=== PATIENT | male | born 1960 | race Caucasian/White ===

== ENCOUNTER 2019-10-22 00:01 | Emergency (ER) | payer BC ==
--- NOTE | 2019-10-22 00:53 | EDM.PDOC ---
ED HPI GENERAL MEDICAL PROBLEM - General Chief Complaint: Flank Pain Stated Complaint: KIDNEY STONES? Time Seen by Provider: 10/22/19 00:35 Source of Information: Reports: Patient History Limitations: Reports: No Limitations - History of Present Illness INITIAL COMMENTS - FREE TEXT/NARRATIVE: Patient presents concerned that he may have a kidney stone on his right side. Getting approximately 1800 hrs. this evening he noticed sudden onset of severe right flank and CVA pain with some radiation around to the anterior abdomen. He has never had anything like this before. No pain on the left side. He states that he is currently being treated for some type of colitis or diverticulitis or diverticulosis or a different condition but related to intermittent abdominal pain. He has a prescription for budesonide 3 mg tablets which he states he received for his osos/-itis pain previously described. When the right-sided pain developed tonight, it was 10/10 in severity. He took some Tylenol and ibuprofen prior to arrival and feels much better now. He does not think he has had any specific urinary problems and has not noticed any changes in color or urinary pattern. His father has a history of kidney stones and he is concerned that he now has 1 as well. Onset: Sudden Duration: Hour(s): (7) Location: Reports: Abdomen, Back Quality: Reports: Sharp, Stabbing Severity: Severe Improves with: Reports: None Worsens with: Reports: None Associated Symptoms: Reports: Nausea/Vomiting Right Flank Pain Score (Numeric/FACES): 2 - Related Data Allergies Allergy/AdvReac Type Severity Reaction Status Date / Time No Known Allergies Allergy Verified 10/22/19 00:21 Home Meds: Home Meds Budesonide [Budesonide EC] 3 mg PO DAILY 10/22/19 [History] Escitalopram [Lexapro] 10 mg PO BID 10/22/19 [History] LORazepam [Ativan] 1 mg PO BID PRN 10/22/19 [History] Past Medical History Respiratory History: Reports: Pneumothorax Gastrointestinal History: Reports: Diverticulosis, Other (See Below) Musculoskeletal History: Reports: Back Pain, Chronic, Fracture Psychiatric History: Reports: Anxiety, Depression - Past Surgical History Neurological Surgical History: Reports: Other (See Below) Other Neurological Surgeries/Procedures: "trimmed disc" L4 and L5 Musculoskeletal Surgical History: Reports: Knee Replacement, Other (See Below) Other Musculoskeletal Surgeries/Procedures:: Fx clavicle. surgical repair left foot x6 Social & Family History - Tobacco Use Smoking Status *Q: Never Smoker - Caffeine Use Caffeine Use: Reports: Coffee - Recreational Drug Use Recreational Drug Use: No ED ROS GENERAL - Review of Systems Review Of Systems: Comprehensive ROS is negative, except as noted in HPI. ED EXAM, RENAL/ - Physical Exam Exam: See Below Exam Limited By: No Limitations General Appearance: Alert, No Apparent Distress Respiratory/Chest: No Respiratory Distress Cardiovascular: Regular Rate, Rhythm GI/Abdominal: Soft, Tender (There is minimal tenderness on palpation in the right CVA region.) (Male) Exam: Normal Inspection Course - Vital Signs Last Recorded V/S: Last Vital Signs Temp 36.7 C 10/22/19 00:24 Pulse 64 10/22/19 00:24 Resp 14 10/22/19 00:24 BP 157/103 H 10/22/19 00:24 Pulse Ox 93 L 10/22/19 00:24 - Orders/Labs/Meds Labs: Laboratory Tests 10/22/19 Range/Units 01:18 Urine Color Yellow (YELLOW) Urine Appearance Clear (CLEAR) Urine pH 6.0 (5.0-8.0) Ur Specific [place] 1.020 (1.008-1.030) Urine Protein Negative (NEGATIVE) mg/dL Urine Glucose (UA) Negative (NEGATIVE) mg/dL Urine Ketones Trace H (NEGATIVE) mg/dL Urine Occult Blood Moderate H (NEGATIVE) Urine Nitrite Negative (NEGATIVE) Urine Bilirubin Negative (NEGATIVE) Urine Urobilinogen 0.2 (0.2-1.0) EU/dL Ur Leukocyte Esterase Negative (NEGATIVE) Urine RBC 20-30 H (0-5) Urine WBC 0-5 (0-5) Ur Epithelial Cells Few Amorphous Sediment Not seen Urine Bacteria Few Urine Mucus Not seen Meds: Medications Discontinued Medications Generic Name Dose Route Start Last Admin Trade Name Freq PRN Reason Stop Dose Admin Tamsulosin HCl 0.4 mg 10/22/19 02:30 10/22/19 02:36 Flomax PO 10/22/19 02:31 0.4 mg ONETIME ONE Administration - Re-Assessments/Exams Free Text/Narrative Re-Assessment/Exam: 10/22/19 00:57 He is pain-free at this time. We will get a stone protocol abdomen/pelvis CT scan. I told him we needed to check urine as well. He could have stones based on history and exam. 10/22/19 06:16 CT scan shows a 3 mm proximal right ureteral stone with some hydronephrosis. The patient is comfortable at this time. And [facility] prescription was entered for hydrocodone 5/325 mg. A written prescription was sent for tamsulosin 0.4 mg, 5 tablets. He was given 1 tablet of tamsulosin out of hospital stock. He should strain all urine until stone has passed. Take pain medication and tamsulosin regularly. If stone has not passed in 5 days, recheck with primary care team in home community. He was discharged in stable condition. Departure - Departure Time of Disposition: 02:34 Disposition: Home, Self-Care 01 Clinical Impression: Ureteral stone, Renal colic on right side - Discharge Information Instructions: Renal Colic, [id number], Kidney Stones, [id number] Referrals: PCP,None [Primary Care Provider] - Forms: ED Department Discharge Additional Instructions: Strain all urine. Take 800 mg of ibuprofen 3 times a day until the stone passes. Take Flomax (tamsulosin) every day until tablets are gone. Use hydrocodone for stronger pain. If symptoms are not controlled with these medicines, return to emergency department. If you do not pass the stone within the next 5 days, recheck with your local medical team. Sepsis Event Note (ED) - Evaluation Sepsis Screening Result: No Definite Risk - Focused Exam Vital Signs: Vital Signs Temp Pulse Resp BP Pulse Ox 10/22/19 00:24 36.7 C 64 14 157/103 H 93 L 10/22/19 00:23 36.7 C 64 14 157/103 H 93 L
--- NOTE | 2019-10-22 01:51 | CRLCT ---
Indication: Right flank pain Technique: Nonenhanced axial CT imaging through the abdomen and pelvis. Sagittal and coronal reconstructions are provided. Comparison: None Findings: There is a 3 mm stone in the proximal right ureter, approximately 6 cm distal to the ureterovesical junction. There is mild right hydronephrosis. There are no additional renal stones. The urinary bladder is unremarkable. There is unremarkable noncontrast appearance of the liver, gallbladder, spleen, pancreas, and adrenal glands. There is no abdominal lymphadenopathy. There is normal caliber of the abdominal aorta. The stomach and duodenum are unremarkable. There are no abnormally dilated small bowel loops. The appendix is noninflamed. There is no colonic wall thickening. No inflammatory changes are demonstrated in the mesentery. Degenerative disc disease is noted in the lower lumbar spine. The included lung bases are clear. Impression: 1. A 3 mm stone in the proximal right ureter, resulting in mild hydronephrosis. 2. No additional renal stones. Please note that all CT scans at this facility use dose modulation, iterative reconstruction, and/or weight-based dosing when appropriate to reduce radiation dose to as low as reasonably achievable. Dictated by Chris Hawkins MD @ Oct 22 2019 1:44AM Signed by Dr. Chris Hawkins @ Oct 22 2019 1:49AM
[2019-10-22] MEDS ORDERED: Tamsulosin 0.4 MG Cap.ER PO ONE (02:30)
== END 2019-10-22 02:45 | disposition home or self-care (01) ==
LOC: JP.ED 00:01
DX: N13.2 Hydronephrosis with renal and ureteral calculous obstruction (principal); F41.9 Anxiety disorder, unspecified; F32.9 Major depressive disorder, single episode, unspecified; Z79.899 Other long term (current) drug therapy
CPT/HCPCS: 74176; 81001; 99284; A9270; 99283